=== PATIENT | male | born 1960 | race Caucasian/White ===

== ENCOUNTER 2016-10-17 11:30 | Emergency (ER) | payer OTHER ==
[~2016-10-17] VITALS: Ht 170.2 cm; Wt 49.9 kg
[~2016-10-17 11:30] MED LIST: IBUPROFEN600 MG ORAL; NORCO 5-325 TA1 EACH ORAL
[2016-10-17 11:52] VITALS: BP 138/73
--- NOTE | 2016-10-17 13:40 | Diagnostic Imaging Report ---
Clinical Indication:TRAUMA Technique: 3 views of the left wrist Comparison: 4 12/08/16 Findings: Again demonstrated is a comminuted distal radial fracture in a splint. This is questionably slightly more angulated, although this could be more apparent than real due to differences in positioning on the lateral view. Appearance on the AP view is identical, however. Impression: Distal radial fracture in plaster splint, equivocally slightly more anteriorly angulated than on prior study of 5 days earlier
--- NOTE | 2016-10-17 14:03 | Emergency Room Report ---
History of Present Illness General Chief Complaint: General Complaint Source: Patient Present Illness HPI This patient broke his left wrist 5 days ago. He was placed in a splint. He returns because he has had swelling and bruising and ongoing pain under the splint. He has not seen an orthopedic surgeon. He denies reinjury or other complaints. Allergies: Coded Allergies: No Known Allergies (Unverified , 10/12/16) Patient History Past Medical History: see triage record, psych hx Social History: Denies: alcohol use, drug use, smoking Reviewed Nursing Documentation: PMH: Agreed, PSxH: Agreed Nursing Documentation-PMH Past Medical History: No Stated History Review of Systems All Other Systems: negative except mentioned in HPI Physical Exam Vital Signs Date Time Temp Pulse Resp B/P Pulse Ox O2 Delivery O2 Flow Rate FiO2 10/17/16 11:35 98.2 99 16 138/73 100 Room Air Sp02 EP Interpretation: reviewed, normal General Appearance: no apparent distress, alert, GCS 15, non-toxic Head: normocephalic, atraumatic Eyes: bilateral eye PERRL, bilateral eye normal inspection ENT: hearing grossly normal, normal pharynx, no angioedema, normal voice Neck: full range of motion, supple/symm/no masses Respiratory: chest non-tender, lungs clear, normal breath sounds, speaking full sentences Cardiovascular #1: regular rate, rhythm, no edema Gastrointestinal: normal bowel sounds, non tender, soft, non-distended, no guarding, no rebound Rectal: deferred Musculoskeletal: back normal, gait/station normal, normal range of motion, other - L. hand with swelling, ecchymosis. Normal sensation throughout. Neurologic: alert, oriented x3, responsive, motor strength/tone normal, sensory intact, speech normal Psychiatric: judgement/insight normal, memory normal, mood/affect normal, no suicidal/homicidal ideation Skin: normal color, no rash, warm/dry, well hydrated Medical Decision Making Diagnostic Impression: Primary Impression: Radius distal fracture ER Course Patient has a comminuted distal radius fracture. This fracture is unstable. I did replace the patient's splint and placed him in a sugar tong splint for more stability. This only surgical repair. I did call Dr. Johnny Donnelly the orthopedist on-call and he agreed that this will need surgery. However, he states not emergently. Dr. Donnelly does not want to followup with this patient and states that he will need to followup with another orthopedic surgeon. I pressed and urged this patient to go to [facility] outpatient clinic. The patient was given the address and a printout of the location to see this clinic urgently. I also instructed him to call his insurance company as another option. However, I did explain to him at length that he will need surgery on his wrist and it is very important that he obtains followup with an orthopedic surgeon within the next couple days. I educated him extensively that he may lose function in his wrist if he does not see an orthopedic surgeon and get he needed orthopedic repair. He indicated understanding and intention to do so. Other X-Ray Diagnostic Results Other X-Ray Diagnostic Results : X-Ray Ordered: L. wrist x2 EP Interpretation: No Number of Views: 3 Other Impression Comminuted distal radial fracture. Last Vital Signs Date Time Temp Pulse Resp B/P Pulse Ox O2 Delivery O2 Flow Rate FiO2 10/17/16 11:52 98.2 99 16 138/73 100 Room Air Disposition: HOME, SELF-CARE Condition: Stable Referrals: [facility],REFERRING (PCP) Additional Instructions: Please followup with an orthopedic surgeon within the next one to 2 days. Go to [facility] or [facility]. Also an option is to call your insurance company and obtain a referral in this manner. However, it is imperative that you see an orthopedic surgeon within the next one to 2 days. TRENT TA D.O. Oct 17, 2016 14:03
[2016-10-17 14:10] VITALS: BP 126/77
--- NOTE | 2016-10-17 14:22 | Diagnostic Imaging Report ---
Clinical Indication:TRAUMA Technique: 3 views of the left wrist Comparison: 1-1/2 hours earlier Findings: Additional splint material is now present. Bony alignment of anteriorly angulated and displaced distal radial fracture appears essentially unchanged Impression: Unchanged anteriorly angulated and displaced distal radial fracture, over 1-1/2 hours, as described
== END 2016-10-17 14:11 | disposition home or self-care (01) ==
LOC: EMR 11:52
DX: S52.502G Unspecified fracture of the lower end of left radius, subsequent encounter for closed fracture with delayed healing (principal)
CPT/HCPCS: 29125; 99284